=== PATIENT | female | born 2000 | race African-American/Black ===

== ENCOUNTER 2018-04-27 13:53 | Emergency (ER) | payer SELFPAY ==
[~2018-04-27] VITALS: Ht 160 cm; Wt 48.6 kg
[2018-04-27 14:29] LABS: HEMOGLOBIN 12.7 G/DL (11.9-15.5); MCH 26.9 PG (29.0-34.0); MCHC 33.4 G/DL (30.0-36.0); MCV 80.5 FL (83-99); PLATELET COUNT 310 K/uL (156-360); RBC DIS.WIDTH-CV 14.4 % (11.8-14.6); RBC DIS.WIDTH-SD 41.6 % (39-53); RED BLOOD COUNT 4.72 M/uL (3.80-5.20); WHITE BLOOD COUNT 12.3 K/uL (4.1-10.2)
[2018-04-27 14:36] LABS: ALBUMIN 4.5 g/dL (3.2-4.8); CHLORIDE 103 mEq/L (99-109); POTASSIUM 3.6 mEq/L (3.7-5.4); SODIUM 135 mEq/L (136-147)
[2018-04-27 14:39] LABS: GLUCOSE 99 mg/dL (70-99); TOTAL PROTEIN 8.1 g/dL (6.4-8.3)
[2018-04-27 14:41] LABS: TOTAL BILIRUBIN 0.5 mg/dL (0.0-1.0)
[2018-04-27 14:42] LABS: ALKALINE PHOSPHATASE 76 IU/L (3-129); CREATININE 0.8 mg/dL (0.6-1.3)
[2018-04-27 14:43] LABS: GFR ESTIMATE (CALCULATED) > 59 mL/min/; UREA NITROGEN (BUN) 6 mg/dL (9-23)
[2018-04-27 14:44] LABS: AST (GOT) 27 IU/L (2-34)
[2018-04-27 14:45] LABS: ALT (GPT) 23 IU/L (3-49)
[2018-04-27 14:53] LABS: QUANTITATIVE HCG < 4.0 MIU/ML
[2018-04-27 15:13] LABS: LIPASE 21 U/L (1.0-51.0)
[2018-04-27 15:15] LABS: APPEARANCE CLEAR ((CLEAR)); BILIRUBIN NEGATIVE; BLOOD SMALL; COLOR YELLOW ((YELLOW)); GLUCOSE (STRIP) NEGATIVE; KETONES 5; LEUKOCYTES NEGATIVE; NITRITE NEGATIVE; PROTEIN (STRIP) NEGATIVE; UROBILINOGEN 0.2 MG/DL (0.2-1.0)
[2018-04-27 15:29] LABS: BACTERIA NONE SEEN /HPF; EPITHELIAL CELLS RARE /HPF; MUCUS TRACE /LPF; RED BLOOD CELLS NONE SEEN /HPF (0-5); UCUL ADDED? NO; WHITE BLOOD CELLS 0-5 /HPF (0-5)
[2018-04-27 16:06] LABS: C DIFF TOXIN POSITIVE (NEGATIVE)
[2018-04-27] MEDS ORDERED: VANCOCIN HCL125 MG PO (16:30)
[2018-04-27 17:04] VITALS: BP 133/98
== END 2018-04-27 17:07 | disposition home or self-care (01) ==
LOC: EME 13:53
PROVIDERS: Nurse Practitioner Family
DX: A04.72 Enterocolitis due to Clostridium difficile, not specified as recurrent (principal)
CPT/HCPCS: 80053; 81003; 83690; 84702; 85027; 87493; 99281; 99285; J7030